=== PATIENT | female | born 1955 | race Caucasian/White ===

== ENCOUNTER → 2017-03-06 | Outpatient (CLI) | payer MEDICARE ==
[~2017-03-06] MED LIST: ALBU8.5H3 INH; AMINOPHYLLINE 25 MG/ML, 10ML ONE; ATOR20TA9 PO; BUDE10.2 INH; CA C1TAB60 PO; CHOL500015 PO; CITA20TA5 PO; DOXY100T9 PO; METO-93 PO; MULT-658 PO; REGADENOSON 0.4 MG/5 ML SYRINGE ONE; VITA150T PO; WARF10TA6 PO; WARF5TAB7 PO
== END | disposition home or self-care (01) ==
LOC: CFH 06:41
PROVIDERS: ATTEND Internal Medicine Cardiovascular Disease
DX: I08.3 Combined rheumatic disorders of mitral, aortic and tricuspid valves (principal); I37.1 Nonrheumatic pulmonary valve insufficiency; I51.7 Cardiomegaly; I48.91 Unspecified atrial fibrillation; Z95.0 Presence of cardiac pacemaker; Z85.3 Personal history of malignant neoplasm of breast; Z86.79 Personal history of other diseases of the circulatory system
CPT/HCPCS: 78452; 93017; 93306; A9502; J0280; J2785

== ENCOUNTER 2017-04-16 09:16 | Day surgery (SDC) | payer MEDICARE ==
[2017-04-15 10:23] VITALS: BP 126/88
[2017-04-15 11:05] LABS: ASPARTATE AMINO TRANSFERASE 113 U/L (15-37); BLOOD UREA NITROGEN 8 mg/dL (7-18)
[~2017-04-16] VITALS: Ht 162.6 cm; Wt 84.0 kg
[~2017-04-16 09:16] MED LIST changes: -AMINOPHYLLINE 25 MG/ML, 10ML ONE; +PRIM50TA PO; -REGADENOSON 0.4 MG/5 ML SYRINGE ONE; +RIVA20TA PO
[2017-04-16] MEDS ORDERED: ZOLPIDEM 5MG TABLET PO PRN (09:30)
[2017-04-16] MEDS ORDERED: ACETAMINOPHEN 325 MG TABLET PO PRN (09:30)
[2017-04-16] MEDS ORDERED: ASPIRIN 325 MG TABLET EC PO ONE (09:30)
[2017-04-16] MEDS ORDERED: BISACODYL 10 MG SUPP PR PRN (09:30)
[2017-04-16] MEDS ORDERED: BISACODYL 5 MG EC TABLET PO PRN (09:30)
[2017-04-16] MEDS ORDERED: SODIUM CHLORIDE 0.9% 1,000 ML IV SCH ×2 (09:30→13:30)
[2017-04-16] MEDS ORDERED: FENTANYL PF 100 MCG/2ML ONE (10:44)
[2017-04-16] MEDS ORDERED: MIDAZOLAM 1 MG/ML, 5ML ONE (10:44)
[2017-04-16] MEDS ORDERED: LIDOCAINE 2%, 20ML ONE (10:44)
== END 2017-04-16 16:20 ==
LOC: CACL 09:16
PROVIDERS: ATTEND Internal Medicine Cardiovascular Disease
DX: I25.10 Atherosclerotic heart disease of native coronary artery without angina pectoris (principal); I10 Essential (primary) hypertension; Z79.01 Long term (current) use of anticoagulants
CPT/HCPCS: 36415; 71020; 80053; 85025; 85610; 85730; 93458; 99156; 99157; C1894; J2250; J3010; J3490; Q9967

== ENCOUNTER 2021-01-25 18:31 | Emergency (ER) | payer OTHER, MEDICARE ==
[~2021-01-25] VITALS: Ht 162.6 cm; Wt 78.0 kg
[~2021-01-25 18:31] MED LIST changes: -ALBU8.5H3 INH; +ALBU8.5H8 INH; +ATOR20TA37 PO; -ATOR20TA9 PO; -CITA20TA5 PO; +CITA20TA6 PO; +DOXY-162 PO; -DOXY100T9 PO; +WARF-36 PO; +WARF10TA43 PO; -WARF10TA6 PO; -WARF5TAB7 PO
[2021-01-25 18:45] VITALS: BP 136/85
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
== END 2021-01-25 20:38 | disposition home or self-care (01) ==
LOC: ED 19:00
DX: F33.9 Major depressive disorder, recurrent, unspecified (principal)
CPT/HCPCS: 99283